=== PATIENT | male | born 1985 | race Two or more races ===

== ENCOUNTER 2017-09-11 13:49 | Emergency (ER) | payer SELFPAY ==
[~2017-09-11] VITALS: Ht 172.7 cm; Wt 90.7 kg
[2017-09-11] MEDS ORDERED: XANAX1 MG ORAL (14:04)
[2017-09-11] MEDS ORDERED: EFFEXOR XR150 MG ORAL (14:04)
[2017-09-11] MEDS ORDERED: LITHIUM CARBON300 MG ORAL (14:04)
[2017-09-11 14:08] VITALS: BP 114/83
--- NOTE | 2017-09-11 14:11 | Emergency Room Report ---
History of Present Illness General Chief Complaint: Medication Refill Source: Patient, Medical Record Present Illness HPI 32-year-old male presents to the emergency department requesting medication refill. Patient states that he is almost out of his Effexor which he takes daily due to his history of manic episodes. Patient reports that he is taking 375 mg daily extended release. He states that he failed multiple trials of psychiatric medications. Denies current psychiatric symptoms denies SI, HI, ronak or hypomania. Denies pain. Allergies: Coded Allergies: No Known Allergies (Unverified , 09/11/17) Patient History Past Medical History: see triage record, psych hx Past Surgical History: none Pertinent Family History: none Immunizations: UTD Reviewed Nursing Documentation: PMH: Agreed; PSxH: Agreed Nursing Documentation-PMH Past Medical History: No History, Except For Review of Systems All Other Systems: negative except mentioned in HPI Physical Exam Vital Signs Date Time Temp Pulse Resp B/P (MAP) Pulse Ox O2 Delivery O2 Flow Rate FiO2 09/11/17 13:55 98.1 92 18 114/83 95 Room Air 98.1 Sp02 EP Interpretation: reviewed, normal General Appearance: no apparent distress, alert, GCS 15, non-toxic Head: normocephalic, atraumatic Eyes: bilateral eye normal inspection, bilateral eye PERRL ENT: hearing grossly normal, normal voice Neck: full range of motion Respiratory: lungs clear, normal breath sounds, speaking full sentences Cardiovascular #1: regular rate, rhythm, normal capillary refill Genitourinary: normal inspection Musculoskeletal: back normal, gait/station normal, normal range of motion, non- tender Neurologic: alert, oriented x3, responsive, motor strength/tone normal, sensory intact, normal gait, speech normal, grossly normal Psychiatric: judgement/insight normal, mood/affect normal, no suicidal/ homicidal ideation, no delusions Skin: normal color, no rash, warm/dry, well hydrated Medical Decision Making PA Attestation Dr. patel is my supervising Physician whom patient management has been discussed with. Diagnostic Impression: Primary Impression: Encounter for medication refill ER Course 32-year-old male presents to the emergency department requesting medication refill. Patient states that he is almost out of his Effexor which he takes daily due to his history of manic episodes. Patient reports that he is taking 375 mg daily extended release. He states that he failed multiple trials of psychiatric medications. Denies current psychiatric symptoms denies SI, HI, ronak or hypomania. Denies pain. Ddx considered but are not limited to: drug seeking, OD, manic episode, non- adherence just to name a few. Vital signs: are WNL, pt. is afebrile H&PE are most consistent with need for medication refill. ORDERS: none required at this time, the diagnosis is clinical ED INTERVENTIONS: None required at this time. DISCHARGE: At this time pt. is stable for d/c to home. Will provide printed patient care instructions, and any necessary prescriptions. Care plan and follow up instructions have been discussed with the patient prior to discharge. Last Vital Signs Date Time Temp Pulse Resp B/P (MAP) Pulse Ox O2 Delivery O2 Flow Rate FiO2 09/11/17 14:08 98.1 68 18 114/83 95 Room Air 98.1 Disposition: HOME, SELF-CARE Condition: Stable Scripts Venlafaxine Hcl* (VENLAFAXINE HCL ER) 75 Mg Cap.er.24h 75 MG ORAL DAILY for 7 Days, #7 CAP Prov: Loretta Durant 09/11/17 Venlafaxine Hcl* (VENLAFAXINE HCL ER*) 150 Mg Cap.er.24h 300 MG ORAL DAILY for 7 Days, #14 CAP Prov: Loretta Durant 09/11/17 Patient Instructions: Medicine Refill at the Emergency Department Additional Instructions: Take medications as directed. Follow up with a Primary Care Provider in 3-5 days, even if your symptoms have resolved. --Please review list of primary care clinics, if you do not already have a primary care provider Return sooner to ED if new symptoms occur, or current symptoms become worse. - Please note that this Emergency Department Report was dictated using [employer] product [employer] technology software, occasionally this can lead to erroneous entry secondary to interpretation by the dictation equipment. Loretta Durant September 11, 2017 14:11
[2017-09-11] MEDS ORDERED: VENLAFAXINE HCL75 M1 ORAL (14:20)
[2017-09-11] MEDS ORDERED: VENLAFAXINE HC150 MG ORAL (14:20)
[2017-09-11 14:33] VITALS: BP 114/83
== END 2017-09-11 15:30 | disposition home or self-care (01) ==
LOC: EMR 14:21
DX: Z76.0 Encounter for issue of repeat prescription (principal)
CPT/HCPCS: 99283

== ENCOUNTER 2017-09-12 15:16 | Emergency (ER) | payer OTHER ==
[~2017-09-12] VITALS: Ht 177.8 cm; Wt 99.8 kg
[~2017-09-12 15:16] MED LIST: EFFEXOR XR150 MG ORAL; LITHIUM CARBON300 MG ORAL; VENLAFAXINE HC150 MG ORAL; VENLAFAXINE HCL75 M1 ORAL; XANAX1 MG ORAL
[2017-09-12 15:42] VITALS: BP 132/86
--- NOTE | 2017-09-12 16:23 | Emergency Room Report ---
History of Present Illness General Chief Complaint: Head Injury Source: Patient Present Illness HPI Patient is a 32-year-old male brought in by self after a recent fall. Patient reportedly slipped and hit the back of his head. He denied loss of consciousness. He denies new or weak or dizzy. He denies nausea or vomiting. Patient noted some the marked swelling to the back of his head. He placed a cool water compress to the back of his head with some improvement in swelling. He denies any severe neck pain at this time.Patient is currently traveling from [facility].Patient denies any weakness to his extremities. Allergies: Coded Allergies: No Known Allergies (Unverified , 09/11/17) Patient History Past Medical History: see triage record Reviewed Nursing Documentation: PMH: Agreed; PSxH: Agreed Nursing Documentation-PMH Past Medical History: No History, Except For History Of Psychiatric Problem: Yes - Bipolar Review of Systems All Other Systems: negative except mentioned in HPI Physical Exam Vital Signs Date Time Temp Pulse Resp B/P (MAP) Pulse Ox O2 Delivery O2 Flow Rate FiO2 09/12/17 15:23 98.3 95 16 132/86 97 Room Air 98.2 Sp02 EP Interpretation: reviewed, normal General Appearance: normal inspection, well appearing, no apparent distress, alert, GCS 15 Head: other - occipitoparietal scalp contusion ENT: normal ENT inspection, hearing grossly normal, normal voice Neck: normal inspection, full range of motion, supple, no bony tend Respiratory: normal inspection, lungs clear, normal breath sounds, no respiratory distress, no retraction, no wheezing Cardiovascular #1: regular rate, rhythm, no edema Gastrointestinal: normal inspection, normal bowel sounds, non tender, soft, no guarding, no hernia Genitourinary: no CVA tenderness Musculoskeletal: normal inspection, back normal, normal range of motion Neurologic: normal inspection, alert, oriented x3, responsive, hotel director III-XII nml as tested, speech normal Psychiatric: normal inspection, judgement/insight normal, mood/affect normal Skin: normal inspection, normal color, no rash Medical Decision Making Diagnostic Impression: Primary Impression: Contusion of scalp Additional Impression: Acute head injury ER Course Patient presented after a fall.Differential diagnosis included was not limited to neck fracture, CVA, close head injury, syncopal episode, basilar ischemia. Because of complexity of patient's case laboratory testing and imaging studies were ordered. CT imaging of the head read by radiology showed parietal scalp contusion without evidence of acute intracranial hemorrhage or fracture. The patient's cervical spine was clinically cleared. The patient was advised to take Tylenol as needed for pain. The patient is advised to follow up with primary care doctor in 1-2 days. Patient is advised to return if any worsening condition or if any changes in status that are concerning. This report is dictated with [employer] nut feeder software which may occasionally lead to discrepancies related to use of this software. Last Vital Signs Date Time Temp Pulse Resp B/P (MAP) Pulse Ox O2 Delivery O2 Flow Rate FiO2 09/12/17 15:42 98.2 78 16 132/86 97 Room Air 98.2 Status: improved Disposition: HOME, SELF-CARE Condition: Stable Referrals: NOT CHOSEN IPA/,REFERRING (PCP) Collin Palumbo MD September 12, 2017 16:23
--- NOTE | 2017-09-12 16:32 | Diagnostic Imaging Report ---
Indications: Head trauma Technique: Spiral acquisitions obtained through the brain. Angled axial and coronal 5 x 5 mm slices were reconstructed. Total dose length product 1428.58 mGycm. CTDI vol(s) 70.38 mGy. Dose reduction achieved using automated exposure control Comparison: None. Findings: There is a right high parietal scalp hematoma. No underlying calvarial injury. No acute intracranial hemorrhage or edema, mass effect, nor midline shift. Normal segal-white differentiation. Normal-sized ventricles and extra-axial CSF spaces. Visualized orbits are unremarkable. There is minimal ethmoid sinus disease. The mastoids are clear.. Impression: Evidence of right parietal scalp soft tissue injury Negative for acute intracranial bleed or mass effect The CT scanner at [facility] is accredited by the [employer] and the scans are performed using protocols designed to limit radiation exposure to as low as reasonably achievable to attain images of sufficient resolution adequate for diagnostic evaluation.
[2017-09-12] MEDS ORDERED: Acetaminophen 500mg (ES) tab ORAL ONE (16:45)
[2017-09-12 17:21] VITALS: BP 132/86
== END 2017-09-12 17:23 | disposition home or self-care (01) ==
LOC: EMR 15:50
DX: S00.03XA Contusion of scalp, initial encounter (principal); W01.0XXA Fall on same level from slipping, tripping and stumbling without subsequent striking against object, initial encounter; Y92.9 Unspecified place or not applicable; F31.9 Bipolar disorder, unspecified
CPT/HCPCS: 70450; 99283